=== PATIENT | female | born 1995 | race Caucasian/White ===

== ENCOUNTER → 2019-05-17 | Outpatient (CLI) | payer OTHER ==
[~2019-05-17] MED LIST: ASPIR 8181 MG PO; BACTRIM DS TAB1 EACH PO; CARVEDILOL6.25 MG PO; K-DUR 20 MEQ T20 MEQ PO; KENALOG60 GM TP; LASIX 40 MG TAB40 M2 PO; LEVAQUIN 500 M500 M2 PO; LISINOPRIL2.5 MG PO; MEDROLDOSEPACK PO; NICOTINE TRANSDE7 MG TRANSDERM; PREDNISONE 20 M20 MG PO; VISTARIL 25 MG25 M1 PO
== END ==
LOC: RAD 12:47
DX: M54.5 Low back pain (principal)

== ENCOUNTER 2019-08-18 13:24 | Emergency (ER) | payer OTHER ==
[~2019-08-18] VITALS: Ht 157.5 cm; Wt 60.8 kg
[2019-08-18 13:51] LABS: URINE BILIRUBIN NEGATIVE (Negative); URINE BLOOD NEGATIVE (Negative); URINE CLARITY CLEAR; URINE COLOR YELLOW; URINE GLUCOSE-RANDOM* NEGATIVE (Negative); URINE KETONES NEGATIVE (Negative); URINE LEUKOCYTES-REFLEX NEGATIVE (Negative); URINE NITRITE-REFLEX NEGATIVE (Negative); URINE PROTEIN (DIPSTICK) NEGATIVE (Negative); URINE UROBILINOGEN 0.2 E.U./dl (0.2-1.0)
[2019-08-18 14:41] LABS: ABSOLUTE NEUTROPHILS 6.4 thou/uL (1.4-8.2); EOSINOPHILS 1.3 % (0.0-3.0); HEMOGLOBIN 14.7 gm/dL (12.0-15.0); LYMPHOCYTES 26.8 % (24.0-44.0); MCH 31.1 pg (26.0-34.0); MCHC 34.1 g/dL (28.0-37.0); MCV 91.3 fL (80.0-100.0); MONOCYTES 5.1 % (1.0-8.0); PLATELET COUNT 383 thou/uL (150-400); POLYS 65.8 % (36.0-66.0); RBC 4.71 mil/uL (4.20-5.00); RDW 14.3 % (10.5-14.5); WBC 9.8 thou/uL (4.0-11.0)
[2019-08-18 14:49] LABS: CALCIUM 9.6 mg/dL (8.5-10.1); CREATININE 0.7 mg/dL (0.6-1.0); POTASSIUM 4.1 mmol/L (3.5-5.1)
[2019-08-18 14:56] LABS: ALBUMIN 3.8 g/dL (3.4-5.0); TOTAL BILIRUBIN 0.3 mg/dL (<0.1-1.0); TOTAL PROTEIN 7.6 g/dL (6.4-8.2)
[2019-08-18] MEDS ORDERED: ZOLOFT25 MG PO (15:28)
[2019-08-18] MEDS ORDERED: TRAMADOL 50 MG50 MG PO (16:13)
[2019-08-18] MEDS ORDERED: ZANTAC 150MG T150 M1 PO ×2 (16:13→16:19)
[2019-08-18 16:43] VITALS: BP 105/62
== END 2019-08-18 16:46 | disposition home or self-care (01) ==
LOC: ER 13:24
PROVIDERS: Emergency Medicine
DX: K29.70 Gastritis, unspecified, without bleeding (principal); M54.5 Low back pain; I50.9 Heart failure, unspecified; F17.210 Nicotine dependence, cigarettes, uncomplicated; Z90.49 Acquired absence of other specified parts of digestive tract; Z98.890 Other specified postprocedural states; Z88.1 Allergy status to other antibiotic agents; Z88.8 Allergy status to other drugs, medicaments and biological substances

== ENCOUNTER → 2019-09-01 | Outpatient (CLI) | payer OTHER ==
[~2019-09-01] MED LIST changes: +TRAMADOL 50 MG50 MG PO; +ZANTAC 150MG T150 M1 PO; +ZOLOFT25 MG PO
== END ==
LOC: MRI 09:09 → ULTRA 09:09
DX: M54.6 Pain in thoracic spine (principal); V89.2XXA Person injured in unspecified motor-vehicle accident, traffic, initial encounter

== ENCOUNTER → 2020-12-21 | Outpatient (CLI) | payer OTHER | LOC: ULTRA 14:58 | PROVIDERS: ATTEND Family Medicine | DX: N88.8 Other specified noninflammatory disorders of cervix uteri (principal) ==